=== PATIENT | female | born 1935 | race Caucasian/White ===

== ENCOUNTER 2019-06-22 09:27 | Emergency (ER) | payer MEDICARE, BC ==
[2019-06-22] MEDS ORDERED: Lidocaine 2% PF 5 ML VIAL ONE (09:59)
--- NOTE | 2019-06-22 10:22 | RAD ---
EXAM: 4 views of the left knee HISTORY: Knee pain COMPARISON: None FINDINGS: No knee effusion is seen. There is no evidence of acute fracture or dislocation. No signifi cant degenerative changes are seen. No soft tissue swelling is present. IMPRESSION: No evidence of acute osseous abnormality.
--- NOTE | 2019-06-22 10:22 | RAD ---
EXAM: 3 views of the right ankle HISTORY: Ankle pain COMPARISON: None FINDINGS: 3 views of the right ankle shows no evidence of acute fracture or dislocation. No soft tiss ue swelling is seen. No degenerative changes are present. IMPRESSION: No evidence of acute osseous abnormality.
--- NOTE | 2019-06-22 10:28 | CT ---
Head CT without contrast 06/22/2019: COMPARISON: None HISTORY: Dementia, fall, trauma, pain TECHNIQUE: Axial CT imaging at 5 mm intervals from vertex through skull base without contrast FINDINGS: The visualized paranasal sinuses and mastoid air cells are well aerated. No displaced alie rial fracture. No intracranial hemorrhage, midline shift, or mass effect. Stable cerebral volume loss with associated prominence of the CSF containing spaces IMPRESSION: No intracranial hemorrhage or displaced calvarial fracture.
--- NOTE | 2019-06-22 10:29 | CT ---
EXAM: CT of the cervical spine without contrast HISTORY: Neck pain after fall COMPARISON: None TECHNIQUE: Multiple contiguous axial images were obtained in a CT of the cervical spine without contr ast. Sagittal and coronal reformats were performed. FINDINGS: The vertebral bodies and intervertebral discs demonstrate normal height and alignment witho ut fracture or subluxation. Mild degenerative changes are present. No prevertebral soft tissue swelling is seen. The posterior facets are well aligned. Normal alignment of the skull base with the cervical spine is seen. The lung apices and cervical soft tissues are unremarkable. IMPRESSION: No evidence of acute osseous abnormality of the cervical spine.
--- NOTE | 2019-06-22 11:13 | RAD ---
Exam: Single view of the pelvis HISTORY: Pain after fall COMPARISON: None FINDINGS: A single view the pelvis shows no evidence of acute fracture or dislocation. Mild degenerat jordan changes seen in both hips. Hardware is seen in the lower lumbosacral spine. IMPRESSION: No evidence of acute osseous abnormality.
--- NOTE | 2019-06-22 11:14 | RAD ---
2 views right hip: 06/22/2019 COMPARISON: None HISTORY: Pain, fall FINDINGS: There is moderate superior joint space narrowing involving the right hip with mild lateral acetabular osteophyte formation. No displaced fracture or dislocation. IMPRESSION: Degenerative change with no acute osseous abnormality.
--- NOTE | 2019-06-22 11:25 | RAD ---
EXAM: 2 views of the left hip HISTORY: Left hip pain COMPARISON: None FINDINGS: 2 views of the left hip shows no evidence of acute fracture or dislocation. Mild hip degene rative changes are seen. No soft tissue swelling is present. Hardware seen in the lumbar spine. IMPRESSION: No evidence of acute osseous abnormality.
== END 2019-06-22 11:40 | disposition home or self-care (01) ==
LOC: ERS 09:27
DX: S01.21XA Laceration without foreign body of nose, initial encounter (principal); S80.10XA Contusion of unspecified lower leg, initial encounter; G30.9 Alzheimer's disease, unspecified; F02.80 Dementia in other diseases classified elsewhere, unspecified severity, without behavioral disturbance, psychotic disturbance, mood disturbance, and anxiety; W01.0XXA Fall on same level from slipping, tripping and stumbling without subsequent striking against object, initial encounter; Y92.129 Unspecified place in nursing home as the place of occurrence of the external cause
CPT/HCPCS: 12013; 70450; 72125; 72170; 93005; J2001

== ENCOUNTER 2019-06-29 21:22 | Emergency (ER) | payer MEDICARE, BC ==
--- NOTE | 2019-06-29 22:26 | CT ---
CT head noncontrast HISTORY: Altered mental status. COMPARISON: 06/22/2019. FINDINGS: There is no evidence of acute intracranial hemorrhage or infarct. Diffuse cortical atrophy and mild chronic ischemic small vessel disease are similar in appearance to the previous exam. There is no mass effect or shift of midline structures. Visualized paranasal sinuses remain well-aera jason. IMPRESSION: No acute intracranial abnormalities are demonstrated.
[2019-06-29 23:24] LABS: #Eosinphils 0.1 thou/uL (0.0-0.7); #Lymphocytes 1.4 thou/uL (1.20-3.40); #Monocytes 0.8 thou/uL (0.11-0.59); #Neutrophils 5.4 thou/uL (1.40-6.50); %Basophils 0.4 % (0.0-1.0); %Eosinophils 1.4 % (0.0-10.0); %Lymphocytes 17.6 % (21.0-51.0); %Monocytes 10.4 % (0.0-10.0); %Neutrophils 70.2 % (42.0-75.0); Hemoglobin 11.9 g/dL (12.0-16.0); Mean Corpuscular HGB CONC 34.5 g/dL (32.0-36.0); Mean Corpuscular Hemoglobin 33.5 pg (27.0-31.0); Mean Corpuscular Volume 97.1 fL (78.0-98.0); Mean Platelet Volume 8.4 fL (7.4-10.4); Platelet Count 196 thou/uL (130-400); RBC Distribution Width 11.3 % (11.5-14.5); Red Blood Cell (RBC) Count 3.54 mill/uL (4.20-5.40); White Blood Cell (WBC) Count 7.7 thou/uL (4.8-10.8)
[2019-06-29] MEDS ORDERED: Lorazepam 2 MG/ML VIAL ONE (23:37)
[2019-06-29 23:45] LABS: ALT (SGPT) 33 U/L (8-55); AST (SGOT) 24 U/L (5-34); Albumin 3.9 g/dL (3.4-4.8); Alkaline Phosphatase 100 U/L (40-110); Anion Gap 11 mmol/L (10-20); BUN (Urea Nitrogen) 12 mg/dL (9.8-20.1); Bilirubin, Total 0.6 mg/dL (0.2-1.2); Calc. Creatinine Clearance 0 mL/min (70-130); Calcium 9.3 mg/dL (7.8-10.44); Carbon Dioxide 27 mmol/L (23-31); Chloride 106 mmol/L (98-107); Estimated GFR-MDRD Greater than 90; Globulin 2.4 g/dL (2.4-3.5); Glucose 103 mg/dL (83-110); Potassium 3.4 mmol/L (3.5-5.1); Protein, Total 6.3 g/dL (6.0-8.3); Sodium 141 mmol/L (136-145)
[2019-06-29 23:53] LABS: Bilirubin Negative (Negative); Blood, Urine Negative (Negative); Clarity Clear (Clear); Glucose, Urine (Dipstick) Normal (Negative); Leukocyte Negative Leu/uL (Negative); Nitrite Negative (Negative); Protein, Urine (Dipstick) Negative (Neg-Trace); Urobilinogen 3 mg/dL (Less than 2)
[2019-06-30] MEDS ORDERED: Ziprasidone 20 MG VIAL ONE (00:33)
== END 2019-06-30 03:05 ==
LOC: ERS 21:22
DX: F03.90 Unspecified dementia, unspecified severity, without behavioral disturbance, psychotic disturbance, mood disturbance, and anxiety (principal); E53.8 Deficiency of other specified B group vitamins; E03.9 Hypothyroidism, unspecified; F41.9 Anxiety disorder, unspecified; G47.00 Insomnia, unspecified; M94.0 Chondrocostal junction syndrome [Tietze]; Z79.1 Long term (current) use of non-steroidal anti-inflammatories (NSAID); Z79.899 Other long term (current) drug therapy
CPT/HCPCS: 36415; 70450; 80053; 81003; 83605; 84484; 85025; 87086; 93005; 96372; 96374; A4353; J2060; J3486

== ENCOUNTER 2019-07-22 11:29 | Emergency (ER) | payer MEDICARE, BC ==
--- NOTE | 2019-07-22 11:59 | RAD ---
Exam: Chest one view HISTORY:Cough Comparison: 12/02/2010 FINDINGS: Cardiac silhouette: Normal Aorta: Unremarkable Pulmonary vessels: Normal Costophrenic angles: Clear LUNGS: Chronic lung parenchymal changes, without mass or consolidation Pneumothorax: None Osseous abnormalities: None IMPRESSION: No acute cardiopulmonary process.
[2019-07-22 12:07] LABS: #Eosinphils 0.1 thou/uL (0.0-0.7); #Lymphocytes 1.1 thou/uL (1.20-3.40); #Monocytes 0.5 thou/uL (0.11-0.59); #Neutrophils 4.7 thou/uL (1.40-6.50); %Basophils 0.6 % (0.0-1.0); %Eosinophils 2.2 % (0.0-10.0); %Monocytes 8.3 % (0.0-10.0); %Neutrophils 71.9 % (42.0-75.0); Hemoglobin 11.5 g/dL (12.0-16.0); Mean Corpuscular Hemoglobin 31.6 pg (27.0-31.0); Mean Corpuscular Volume 95.9 fL (78.0-98.0); Platelet Count 230 thou/uL (130-400); Red Blood Cell (RBC) Count 3.64 mill/uL (4.20-5.40); White Blood Cell (WBC) Count 6.5 thou/uL (4.8-10.8)
[2019-07-22 12:41] LABS: Bilirubin Negative (Negative); Blood, Urine Negative (Negative); Clarity Clear (Clear); Glucose, Urine (Dipstick) Normal (Negative); Leukocyte Negative Leu/uL (Negative); Nitrite Negative (Negative); Protein, Urine (Dipstick) Negative (Neg-Trace); Urobilinogen Normal mg/dL (Less than 2)
--- NOTE | 2019-07-22 12:41 | CT ---
CT Brain WO Con: 07/22/2019 11:41 AM CLINICAL HISTORY: Fall with altered mental status. IMAGING TECHNIQUE: Multiple CT images were obtained of the brain without IV contrast. COMPARISON: CT the brain dated June 29, 2019 FINDINGS: Brain: There is stable mild generalized cerebral atrophy. There is stable mild chronic small vessel white matter ischemic change. No acute infarct, hemorrhage or hydrocephalus is present. No midline shift is identified. Ventricles: Normal. No hydrocephalus. Skull: Intact. Visualized Paranasal sinuses: There is mild mucosal thickening involving the maxillary sinuses and et hmoid air cells. Mastoid air cells:Clear. Extracranial soft tissues:There is soft tissue contusion involving the left parietal scalp IMPRESSION: No acute intracranial abnormality. Mild paranasal sinus disease. Left frontal scalp contusion.
--- NOTE | 2019-07-22 12:44 | CT ---
CT Cervical Spine WO Con Indication: Fall with neck pain COMPARISON: CT of the cervical spine dated 08/21/2019. FINDINGS: Fracture: None. Spinal alignment: No acute malalignment. Craniocervical junction: Within normal limits. Vertebral body heights: Maintained. Cervical spine degenerative change: There is stable multilevel mild cervical spondylosis. Calcificati ons within the ligamentum flavum at C4, C5 and C6 are stable appearing. Lung apices: Small right pleural effusion IMPRESSION: No acute osseous abnormality. Small right pleural effusion incidentally noted.
[2019-07-22 13:32] LABS: Albumin 3.3 g/dL (3.4-4.8)
[2019-07-22 13:33] LABS: Chloride 103 mmol/L (98-107)
[2019-07-22 13:34] LABS: Calcium 8.9 mg/dL (7.8-10.44); Potassium 3.2 mmol/L (3.5-5.1); Sodium 139 mmol/L (136-145)
[2019-07-22 13:35] LABS: Globulin 3.1 g/dL (2.4-3.5); Glucose 85 mg/dL (83-110); Protein, Total 6.4 g/dL (6.0-8.3)
[2019-07-22 13:36] LABS: Anion Gap 13 mmol/L (10-20); Carbon Dioxide 26 mmol/L (23-31)
[2019-07-22 13:37] LABS: Bilirubin, Total 0.5 mg/dL (0.2-1.2)
[2019-07-22 13:38] LABS: Alkaline Phosphatase 97 U/L (40-110); Calc. Creatinine Clearance 0 mL/min (70-130); Estimated GFR-MDRD Greater than 90
[2019-07-22 13:39] LABS: BUN (Urea Nitrogen) 5 mg/dL (9.8-20.1)
[2019-07-22 13:40] LABS: AST (SGOT) 17 U/L (5-34)
[2019-07-22 13:41] LABS: ALT (SGPT) 10 U/L (8-55); CK (CPK) 147 U/L (29-168)
--- NOTE | 2019-07-26 13:18 | EKG ---
Test Reason : Blood Pressure : / mmHG Vent. Rate : 077 BPM Atrial Rate : 077 BPM P-R Int : 188 ms QRS Dur : 076 ms QT Int : 432 ms P-R-T Axes : 074 -23 -30 degrees QTc Int : 488 ms Normal sinus rhythm Inferior infarct , age undetermined Abnormal ECG Confirmed by MYCHAL MEEK DO ([id number]), continuity editor RENE HAUSER ([id number]) on 07/26/2019 1:17:56 PM Referred By: Confirmed By:MYCHAL MEEK DO
== END 2019-07-22 15:36 | disposition home or self-care (01) ==
LOC: ERS 11:29
DX: J18.9 Pneumonia, unspecified organism (principal); J90 Pleural effusion, not elsewhere classified; G30.9 Alzheimer's disease, unspecified; F02.80 Dementia in other diseases classified elsewhere, unspecified severity, without behavioral disturbance, psychotic disturbance, mood disturbance, and anxiety; E03.9 Hypothyroidism, unspecified; E78.5 Hyperlipidemia, unspecified; G47.00 Insomnia, unspecified; F41.9 Anxiety disorder, unspecified; Z79.899 Other long term (current) drug therapy; W18.30XA Fall on same level, unspecified, initial encounter; Y92.129 Unspecified place in nursing home as the place of occurrence of the external cause
CPT/HCPCS: 36415; 36416; 51701; 70450; 71045; 72125; 80053; 81003; 82550; 83605; 84484; 85025; 87040; 87149; 93005; 96360

== ENCOUNTER 2019-08-20 20:58 | Emergency (ER) | payer MEDICARE, BC ==
--- NOTE | 2019-08-20 21:32 | CT ---
CT head noncontrast HISTORY: Fall. Injury. COMPARISON: 07/18/2019. FINDINGS: There is no evidence of acute intracranial hemorrhage or infarct. Diffuse cortical atrophy and chronic ischemic small vessel disease are similar in appearance to the previous exam. There is no mass effect or shift of midline structures. Visualized paranasal sinuses remain well aera jason. IMPRESSION : Chronic-type findings are stable. No acute intracranial abnormalities are demonstrated.
--- NOTE | 2019-08-20 21:34 | CT ---
CT cervical spine noncontrast HISTORY: Fall. Injury. FINDINGS: Vertebral body heights and alignment are maintained. Cervicothoracic junction is intact. Po sterior calcification at the C5 level is similar in appearance. There are degenerative changes throughout the vertebral bodies and facets. No acute fracture or dislocation are apparent. IMPRESSION : Osseous degenerative changes are stable. No acute osseous abnormalities are demonstrated.
--- NOTE | 2019-08-20 21:50 | RAD ---
Left shoulder 3 views HISTORY: Left shoulder injury. FINDINGS: Acromioclavicular and glenohumeral alignment are maintained. Mild osteophytosis. No acute f racture or dislocation evident. IMPRESSION : Mild osteoarthritic changes. No acute osseous abnormalities are demonstrated.
--- NOTE | 2019-08-20 21:51 | RAD ---
Chest one view HISTORY: Fall. Chest pain. COMPARISON: 07/22/2019. FINDINGS: Cardiac silhouette is magnified by projection. Pulmonary vasculature is unremarkable. Mediastinum is midline. Blunting of the right lateral costophrenic angle. No lobar consolidation or evidence of pneumothorax. hall monitor leads overlie the chest. IMPRESSION : Small amount right pleural fluid. Cause is not evident. No active cardiopulmonary abnormalities are o therwise demonstrated.
--- NOTE | 2019-08-23 09:49 | EKG ---
Test Reason : Blood Pressure : / mmHG Vent. Rate : 085 BPM Atrial Rate : 085 BPM P-R Int : 168 ms QRS Dur : 088 ms QT Int : 416 ms P-R-T Axes : 050 -11 033 degrees QTc Int : 495 ms Normal sinus rhythm Prolonged QT Abnormal ECG Confirmed by LAKE WASHINGTON DO ([id number]), editor magazine RENE HAUSER ([id number]) on 08/23/2019 9:49:28 AM Referred By: Confirmed By:LAKE WASHINGTON DO
== END 2019-08-20 22:38 ==
LOC: ERS 20:58
DX: J18.9 Pneumonia, unspecified organism (principal); Z91.81 History of falling; G30.9 Alzheimer's disease, unspecified; E53.8 Deficiency of other specified B group vitamins; E03.9 Hypothyroidism, unspecified; E78.5 Hyperlipidemia, unspecified; G47.00 Insomnia, unspecified; M94.0 Chondrocostal junction syndrome [Tietze]; F41.9 Anxiety disorder, unspecified; Z79.899 Other long term (current) drug therapy
CPT/HCPCS: 70450; 71045; 72125; 93005

== ENCOUNTER 2020-03-19 10:35 | Outpatient (CLI) | payer MEDICARE, BC ==
--- NOTE | 2020-03-19 11:43 | RAD ---
XR Hip Lt 2-3 View History: Multiple falls Comparison: Radiograph June 2019 Findings: Mild narrowing of the left hip joint with acetabular osteophyte formation as well as femora l head/neck ring osteophytes. Mild capsular calcifications. No acute displaced fracture or malalignment. Moderate narrowing of the pubic symphysis. Mild bilateral SI joint degenerative change. No acute fracture or malalignment. Impression: No acute fracture nor malalignment. No significant change from June 2019.
[2020-03-19 14:13] LABS: #Eosinphils 0.1 thou/uL (0.0-0.7); #Lymphocytes 1.2 thou/uL (1.20-3.40); #Monocytes 0.7 thou/uL (0.11-0.59); #Neutrophils 5.3 thou/uL (1.40-6.50); %Basophils 0.4 % (0.0-1.0); %Eosinophils 1.3 % (0.0-10.0); %Lymphocytes 16.4 % (21.0-51.0); %Monocytes 9.7 % (0.0-10.0); %Neutrophils 72.2 % (42.0-75.0); Hemoglobin 12.3 g/dL (12.0-16.0); Mean Corpuscular HGB CONC 32.4 g/dL (32.0-36.0); Mean Corpuscular Volume 95.7 fL (78.0-98.0); Mean Platelet Volume 8.3 fL (7.4-10.4); Platelet Count 276 thou/uL (130-400); Red Blood Cell (RBC) Count 3.98 mill/uL (4.20-5.40); White Blood Cell (WBC) Count 7.4 thou/uL (4.8-10.8)
[2020-03-19 15:12] LABS: Bilirubin Negative (Negative); Blood, Urine Negative (Negative); Calcium Oxalate Crystals Rare HPF (None Seen); Clarity Clear (Clear); Glucose, Urine (Dipstick) Normal (Negative); Ketone, Urine Negative (Negative); Leukocyte 25 Leu/uL (Negative); Nitrite Negative (Negative); Protein, Urine (Dipstick) Negative (Neg-Trace); RBC/HPF 0-3 HPF (0-3); Specific Gravity, Urine 1.022 (1.002-1.036); Squamous Epithelial 0-3 HPF (0-3); WBC/HPF 0-3 HPF (0-3)
[2020-03-19 15:20] LABS: Bacteria/HPF 1+ HPF (None Seen)
[2020-03-19 15:26] LABS: ALT (SGPT) 11 U/L (8-55); AST (SGOT) 17 U/L (5-34); Albumin 4.5 g/dL (3.4-4.8); Alkaline Phosphatase 104 U/L (40-110); Anion Gap 13 mmol/L (10-20); BUN (Urea Nitrogen) 14 mg/dL (9.8-20.1); Bilirubin, Total 0.4 mg/dL (0.2-1.2); Calc. Creatinine Clearance 0 mL/min (70-130); Calcium 9.8 mg/dL (7.8-10.44); Carbon Dioxide 33 mmol/L (23-31); Chloride 100 mmol/L (98-107); Estimated GFR-MDRD 73; Globulin 2.9 g/dL (2.4-3.5); Glucose 101 mg/dL (83-110); Potassium 4.4 mmol/L (3.5-5.1); Protein, Total 7.4 g/dL (6.0-8.3); Sodium 142 mmol/L (136-145)
== END 2020-03-19 10:36 | disposition home or self-care (01) ==
LOC: SCSRAD 10:35
PROVIDERS: ATTEND Nurse Practitioner Acute Care
DX: R29.6 Repeated falls (principal)
CPT/HCPCS: 36415; 80053; 81003; 81015; 85025

== ENCOUNTER 2020-04-09 10:46 | Outpatient (CLI) | payer MEDICARE, BC ==
--- NOTE | 2020-04-09 11:56 | CT ---
CT BRAIN WITHOUT CONTRAST: HISTORY: Multiple falls. Alzheimer's disease. COMPARISON: 08/20/2019. FINDINGS: Changes of cortical atrophy and chronic small-vessel ischemic disease are again seen. The ventricula r size is stable and the basilar systems are patent. No evidence of acute infarct, hemorrhage, midline shift, or abnormal extraaxial fluid collections are seen. The bony calvarium is intact. The visualized paranasal sinuses and mastoid air cells are wel l aerated. IMPRESSION: Stable exam. No CT evidence of acute intracranial process. POS: AH
== END 2020-04-09 10:47 | disposition home or self-care (01) ==
LOC: BICCT 10:46
PROVIDERS: ATTEND Nurse Practitioner Acute Care
DX: R29.6 Repeated falls (principal)
CPT/HCPCS: 70450

== ENCOUNTER 2021-04-21 08:43 | Emergency (ER) | payer MEDICARE, BC, MEDICAID ==
[2021-04-21 09:40] LABS: #Eosinphils 0.1 thou/uL (0.0-0.7); #Lymphocytes 0.9 thou/uL (1.20-3.40); #Monocytes 0.6 thou/uL (0.11-0.59); #Neutrophils 6.2 thou/uL (1.40-6.50); %Basophils 0.2 % (0.0-1.0); %Eosinophils 1.4 % (0.0-10.0); %Lymphocytes 11.3 % (21.0-51.0); %Neutrophils 79.1 % (42.0-75.0); Hemoglobin 12.7 g/dL (12.0-16.0); Mean Corpuscular HGB CONC 32.1 g/dL (32.0-36.0); Mean Corpuscular Hemoglobin 32.1 pg (27.0-31.0); Mean Platelet Volume 7.2 fL (7.4-10.4); Platelet Count 195 thou/uL (130-400); RBC Distribution Width 11.5 % (11.5-14.5); Red Blood Cell (RBC) Count 3.95 mill/uL (4.20-5.40); White Blood Cell (WBC) Count 7.8 thou/uL (4.8-10.8)
[2021-04-21 10:05] LABS: Bilirubin Negative (Negative); Blood, Urine Negative (Negative); Clarity Clear (Clear); Glucose, Urine (Dipstick) Normal (Negative); Ketone, Urine Negative (Negative); Leukocyte Negative Leu/uL (Negative); Nitrite Negative (Negative); Protein, Urine (Dipstick) Negative (Neg-Trace); Specific Gravity, Urine 1.009 (1.002-1.036); Urobilinogen Normal mg/dL (Less than 2)
[2021-04-21 10:06] LABS: ALT (SGPT) 8 U/L (8-55); AST (SGOT) 13 U/L (5-34); Albumin 3.7 g/dL (3.4-4.8); Alkaline Phosphatase 85 U/L (40-110); Anion Gap 11 mmol/L (10-20); BUN (Urea Nitrogen) 9 mg/dL (9.8-20.1); Bilirubin, Total 0.3 mg/dL (0.2-1.2); Calc. Creatinine Clearance 0 mL/min (70-130); Calcium 8.9 mg/dL (7.8-10.44); Carbon Dioxide 27 mmol/L (23-31); Chloride 105 mmol/L (98-107); Globulin 2.7 g/dL (2.4-3.5); Glucose 123 mg/dL (83-110); Potassium 3.3 mmol/L (3.5-5.1); Protein, Total 6.4 g/dL (5.8-8.1); Sodium 140 mmol/L (136-145)
== END 2021-04-21 14:11 | disposition home or self-care (01) ==
LOC: ERS 08:43
DX: E86.0 Dehydration (principal); E86.1 Hypovolemia; D64.9 Anemia, unspecified; E03.9 Hypothyroidism, unspecified; E78.5 Hyperlipidemia, unspecified; Z79.899 Other long term (current) drug therapy
CPT/HCPCS: 36415; 51701; 80053; 81003; 84484; 85025; 87045; 87046; 87324; 87427; 87449; 93005

== ENCOUNTER 2023-11-16 20:37 | Emergency (ER) | payer BC, MEDICARE ==
[2023-11-16 21:12] LABS: #Basophils Less than 0.03 10x3/uL (0.0-0.2); %Basophils 0.3 % (0.0-1.0); %Eosinophils 2.6 % (0.0-10.0); %Lymphocytes 25.9 % (21.0-51.0); %Monocytes 8.9 % (0.0-10.0); Hematocrit 36.1 % (36.0-47.0); Hemoglobin 12.1 g/dL (12.0-16.0); Mean Corpuscular HGB CONC 33.5 g/dL (32.0-36.0); Mean Corpuscular Hemoglobin 33.2 pg (27.0-31.0); Mean Corpuscular Volume 99.2 fL (78.0-98.0); Platelet Count 181 10x3/uL (130-400); Red Blood Cell (RBC) Count 3.64 mill/uL (4.20-5.40)
[2023-11-16 21:26] LABS: ALT (SGPT) 10 U/L (8-55); AST (SGOT) 14 U/L (5-34); Albumin 3.1 g/dL (3.4-4.8); Alkaline Phosphatase 73 U/L (40-110); Anion Gap 11 mmol/L (10-20); BUN (Urea Nitrogen) 11 mg/dL (9.8-20.1); Bilirubin, Total 0.3 mg/dL (0.2-1.2); Calc. Creatinine Clearance 0 mL/min (70-130); Calcium 9.1 mg/dL (7.8-10.44); Carbon Dioxide 29 mmol/L (23-31); Chloride 103 mmol/L (98-107); Estimated GFR 88; Globulin 3.1 g/dL (2.4-3.5); Glucose 108 mg/dL (83-110); Magnesium 1.8 mg/dL (1.6-2.6); Potassium 3.3 mmol/L (3.5-5.1); Protein, Total 6.2 g/dL (5.8-8.1); Sodium 140 mmol/L (136-145)
[2023-11-16] MEDS ORDERED: Potassium Bicarbonate/Cit Ac 20 MEQ TAB ONE (22:35)
== END 2023-11-17 01:05 ==
LOC: ERS 20:37
DX: E87.6 Hypokalemia (principal)
CPT/HCPCS: 80053; 83735; 85025; 93005